=== PATIENT | male | born 1955 | race Caucasian/White ===

== ENCOUNTER → 2017-03-24 | Outpatient (CLI) | payer OTHER ==
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
== END | disposition home or self-care (01) ==
LOC: RADCTMAIN 07:59
PROVIDERS: ATTEND Family Medicine
DX: N20.0 Calculus of kidney (principal); R18.8 Other ascites
CPT/HCPCS: 74160; Q9967

== ENCOUNTER 2018-02-26 09:08 | Emergency (ER) | payer OTHER ==
[2018-02-26 09:18] VITALS: PULSE 100
[2018-02-26] MEDS ORDERED: DIPH,PERTUS(ACELL)TETVAC-LF 0.5 ML VIAL IM ONE (09:26)
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
--- NOTE | 2018-02-26 10:24 | CT ---
EXAMINATION TYPE: CT brain louie raphael DATE OF EXAM: 02/26/2018 COMPARISON: 10/18/2014 HISTORY: Fall today with head injury CT DLP: 2471.[address] of the brain was performed. The ventricles, basal cisterns and sulci overlying the cerebral convexities demonstrate mildly enlarg ement. Right frontal remote insult noted. There is no evidence for intracranial hemorrhage or sulcal effacement. There is decreased attenuatio n about the periventricular white matter and deep white matter of both cerebral hemispheres, compatib le with chronic small vessel ischemia. No mass effects are seen. If symptoms persist consider MRI. Osseous calvarium is intact. IMPRESSION: 1. Age related atrophic and chronic small vessel ischemic change without acute intracranial process seen at this time. CT Cervical Spine: Unenhanced CT of the cervical spine was performed with bone and soft tissue window settings submitted . Coronal and sagittal reconstruction is obtained. There is normal alignment and prevertebral soft tissues. No evidence for acute cervical fracture . Scattered degenerative disc disease and spondylosis. Biapical scarring. IMPRESSION: 1. No evidence for acute fracture or subluxation of the cervical spine.
--- NOTE | 2018-02-26 11:41 | XR ---
EXAMINATION TYPE: XR pelvis complete DATE OF EXAM: 02/26/2018 CLINICAL HISTORY: pain TECHNIQUE: Single view the pelvis is submitted. FINDINGS: No evidence for fracture, dislocation or bony lesion. Joint spaces are well-preserved. S I joints appear symmetric. Degenerative changes lumbar spine. IMPRESSION: 1. No acute fracture or dislocation seen. ICD 10 NO FRACTURE, INITIAL EVALUATION
--- NOTE | 2018-02-26 11:45 | XR ---
EXAMINATION TYPE: XR hand complete LT DATE OF EXAM: 02/26/2018 COMPARISON: NONE HISTORY: Pain TECHNIQUE: Three views are submitted. FINDINGS: The osseous structures are intact. There is narrowing DIP joint joints. No erosive change. There is n o acute fracture or dislocation. IMPRESSION: 1. No definite acute fracture or dislocation if symptoms persist, follow-up study in 7 to 10 days wo uld be suggested. 2. Arthropathy.
[2018-02-26] MEDS ORDERED: TOPICAL SKIN ADHESIVE 1 EACH AMP TOPICAL ONE (11:48)
[2018-02-26 11:49] VITALS: BP 142/80; RESP 20; TEMP 98.3
--- NOTE | 2018-02-26 12:55 | XR ---
EXAMINATION TYPE: XR chest 2V DATE OF EXAM: 02/26/2018 COMPARISON: January 14, 2015 HISTORY: Shortness of breath TECHNIQUE: Frontal and lateral views of the chest are obtained. FINDINGS: Scattered senescent parenchymal changes noted. Hyperinflation compatible with COPD. No evidence for infiltrate. No evidence for atelectasis. Heart size is stable. Mediastinal structures are stable and grossly unremarkable. No evidence for hilar prominence. Degenerative changes dorsal spine. IMPRESSION: 1. No evidence for acute pulmonary disease.
== END 2018-02-26 11:55 | disposition home or self-care (01) ==
LOC: EC 09:08 → SUPCPDRO 09:08 → EC 11:55
DX: S61.213A Laceration without foreign body of left middle finger without damage to nail, initial encounter (principal); S80.212A Abrasion, left knee, initial encounter; S00.212A Abrasion of left eyelid and periocular area, initial encounter; E78.5 Hyperlipidemia, unspecified; I10 Essential (primary) hypertension; K21.9 Gastro-esophageal reflux disease without esophagitis; F32.9 Major depressive disorder, single episode, unspecified; F41.9 Anxiety disorder, unspecified; G47.30 Sleep apnea, unspecified; F17.200 Nicotine dependence, unspecified, uncomplicated; Z88.0 Allergy status to penicillin; Z88.2 Allergy status to sulfonamides; Z79.51 Long term (current) use of inhaled steroids; Z79.899 Other long term (current) drug therapy; Z85.828 Personal history of other malignant neoplasm of skin; Z98.890 Other specified postprocedural states; Z99.89 Dependence on other enabling machines and devices; Z23 Encounter for immunization; V17.4XXA Pedal cycle driver injured in collision with fixed or stationary object in traffic accident, initial encounter; Y93.55 Activity, bike riding; Y92.488 Other paved roadways as the place of occurrence of the external cause
CPT/HCPCS: 12001; 70450; 71046; 72125; 90471; 90715; 99284

== ENCOUNTER 2018-12-21 08:28 | Day surgery (SDC) | payer OTHER ==
[2018-12-19 09:05] VITALS: BMI 31.3
[~2018-12-21 08:28] MED LIST: ALPRAZolam 0.25 MG TAB PO PRN; ALPRAZolam 0.5 MG TAB PO PRN; ASPIRIN 325 MG TAB PO STA; ATORVASTATIN 80 MG TAB PO STA; NITROGLYCERIN SL TABS 0.4 MG TAB SUBLINGUAL PRN; SODIUM CHLORIDE 0.9% 1,000 ML in EMPTY BAG 1 BAG IV ONE
[2018-12-21] MEDS ORDERED: ASPIRIN 81 MG ONE (08:45)
[2018-12-21 09:07] VITALS: RESP 16; TEMP 97.8
[2018-12-21] MEDS ORDERED: SODIUM CHLORIDE 0.9% 1,000 ML IV ONE (09:10)
[2018-12-21 09:38] LABS: INR 0.9 (<1.2); Prothrombin Time 10.1 sec (9.0-12.0)
[2018-12-21] MEDS ORDERED: LIDOCAINE 1% INJ 10MG/ML (20 ML MDV) ONE (10:09)
[2018-12-21] MEDS ORDERED: VERAPAMIL 2.5 MG/ML 2 ML AMP ONE (10:09)
[2018-12-21] MEDS ORDERED: MIDAZOLAM (PF) 2 MG/2 ML VIAL IV ONE (10:25)
[2018-12-21] MEDS ORDERED: LIDOCAINE 1% INJ 10MG/ML (20 ML MDV) SQ ONE (10:25)
[2018-12-21] MEDS: VERAPAMIL SYRINGE (5 MG/10 ML) INTRAARTER ONE ×2 (10:26→10:36)
[2018-12-21] MEDS ORDERED: HEPARIN SODIUM 1,000 UN/ML (10ML VL) ONE (10:27)
[2018-12-21] MEDS ORDERED: HEPARIN SODIUM 1,000 UN/ML (10ML VL) IV ONE (10:28)
[2018-12-21] MEDS ORDERED: IOPAMIDOL-370 125ML BTL INJ ONE (10:35)
[2018-12-21] MEDS ORDERED: SODIUM CHLORIDE 0.9% 1,000 ML IV SCH (10:45)
[2018-12-21] MEDS ORDERED: RX INFO: IV CONTRAST WAS GIVEN 1 EACH MISC MISCELLANE PRN (10:45)
--- NOTE | 2018-12-21 12:41 | CC ---
CARDIAC CATHETERIZATION REPORT DATE OF SERVICE: December 21, 2018 PERFORMING PHYSICIAN: 1. Fidel Fraga MD, product safety coordinator. PROCEDURE PERFORMED: 1. Selective right and left coronary angiogram. 2. Left heart catheterization. INDICATION: This is a 63-year-old gentleman with paroxysmal atrial fibrillation as well as COPD, was experiencing shortness of breath with exertion. He underwent myocardial perfusion imaging stress test and that revealed an anterior ischemia and because of that, heart catheterization was advised. APPROACH: Right radial artery. COMPLICATION: None. LEVEL OF SEDATION: Moderate with sedation length of 16 minutes. PROCEDURE DESCRIPTION: After obtaining an informed consent, the patient was brought to the cardiac director of cath lab. The right radial artery was cannulated using micropuncture technique, and the micropuncture wire passed easily. Then I placed a 5-Setswana sheath in the right radial artery. After that I gave the patient 2 mg of verapamil IA and 10,000 units of heparin IV. Selective right and left coronary angiogram performed using JR4 and JL3.5 catheters. Left heart catheterization was performed using 5-Setswana pigtail catheter. The procedure was completed without any complication. SELECTIVE CORONARY ANGIOGRAM: 1. The right coronary artery is a large caliber vessel. It is a dominant vessel and appeared to be angiographically normal. It distally bifurcates into PDA and PLV branches, both appeared to be angiographically normal. 2. The left main is angiographically normal. Bifurcates into left circumflex and left anterior descending artery. 3. The left circumflex is a nondominant vessel. The proximal circumflex is a large caliber vessel and gives rise into first obtuse marginal branch which appeared to be normal and the circumflex continued after that as a medium caliber vessel in the AV groove. 4. The LAD: The proximal LAD appeared to be normal. The mid LAD gives rise into a large septal statistical assistant branch and also into a large diagonal branch. The LAD at that area has a lesion appeared to be in the range of 20% to 30%. Distally appeared to be angiographically normal. HEMODYNAMICS: The left ventricular end-diastolic pressure was 12 mmHg without significant gradient across the aortic valve. CONCLUSION: 1. Mild nonobstructive coronary artery disease. POSTPROCEDURE MANAGEMENT: 1. Medical treatment. 2. Follow up with the patient. MMODL / IJN: [id number] /
[2018-12-21 18:16] VITALS: BP 131/75; PULSE 60
== END 2018-12-21 15:47 | disposition home or self-care (01) ==
LOC: CATHCVL 08:28
PROVIDERS: ATTEND Internal Medicine Interventional Cardiology
DX: I25.10 Atherosclerotic heart disease of native coronary artery without angina pectoris (principal); I48.0 Paroxysmal atrial fibrillation; I10 Essential (primary) hypertension; E11.51 Type 2 diabetes mellitus with diabetic peripheral angiopathy without gangrene; J44.9 Chronic obstructive pulmonary disease, unspecified; E78.5 Hyperlipidemia, unspecified; E78.00 Pure hypercholesterolemia, unspecified; F17.210 Nicotine dependence, cigarettes, uncomplicated; Z87.01 Personal history of pneumonia (recurrent); Z86.19 Personal history of other infectious and parasitic diseases; Z79.899 Other long term (current) drug therapy; Z79.4 Long term (current) use of insulin; Z79.02 Long term (current) use of antithrombotics/antiplatelets; Z79.51 Long term (current) use of inhaled steroids; Z88.0 Allergy status to penicillin; Z88.2 Allergy status to sulfonamides; Z82.49 Family history of ischemic heart disease and other diseases of the circulatory system
CPT/HCPCS: 93458; 85610; C1769; C1894; J2001; J1644; Q9967; J2250

== ENCOUNTER 2023-11-12 08:05 | Emergency (ER) | payer MEDICARE, OTHER ==
--- NOTE | 2023-11-12 08:10 | ED ---
General Adult HPI - General Stated complaint: hip pain Time Seen by Provider: 11/12/23 08:05 Source: patient, RN notes reviewed, old records reviewed - History of Present Illness Initial comments: This is a 68-year-old male who presents to the emergency department complaining of right hip pain and right coccyx pain. Patient states he fell about a week ago onto some concrete he did not think it was that bad but on top of his a rthritis he states the pain is getting much worse. Patient states he has been able to ambulate but it has been hurting quite a bit. Patient denies hitting his head or neck. Patient denies any chest pain or back pain. Patient states he does have a little pain in the right shoulder but he has full range of motion he does not think he broke anything there. Patient denies any other injury or any other problems at this time - Related Data Home Medications Medication Instructions Recorded Confirmed Citalopram Hydrobromide [CeleXA] 40 mg PO DAILY 10/18/14 12/21/18 Gabapentin 600 mg PO TID 10/18/14 12/21/18 Simvastatin [Zocor] 20 mg PO HS 10/18/14 12/21/18 tiZANidine HCL [Zanaflex] 4 mg PO BID 01/10/15 12/21/18 Albuterol Inhaler [Ventolin Hfa 1 - 2 puff INHALATION TID PRN 12/19/18 12/21/18 Inhaler] Amiodarone HCl [Pacerone] 200 mg PO DAILY 12/19/18 12/21/18 Aspirin [Adult Low Dose Aspirin EC] 81 mg PO DAILY 12/19/18 12/21/18 Ferrous Sulfate [Iron (65 MG 325 mg PO BID 12/19/18 12/21/18 Elemental)] Ibuprofen [Motrin] 800 mg PO QAM 12/19/18 12/21/18 Metoprolol Succinate [Toprol XL] 25 mg PO DAILY 12/19/18 12/21/18 Midodrine [ProAmatine] 5 mg PO DAILY 12/19/18 12/21/18 Mirtazapine [Remeron] 45 mg PO HS 12/19/18 12/21/18 QUEtiapine FUMARATE [SEROquel] 25 mg PO HS 12/19/18 12/21/18 Warfarin [Coumadin] 2 mg PO DAILY 12/19/18 12/21/18 Previous Rx's Medication Instructions Recorded Ketorolac [Toradol] 10 mg PO Q8HR #15 tab 11/12/23 Allergies Allergy/AdvReac Type Severity Reaction Status Date / Time Penicillins Allergy Severe Vomiting Verified 11/12/23 08:14 Sulfa (Sulfonamide Allergy Rash/Hives Verified 11/12/23 08:14 Antibiotics) carnations Allergy eyes and Uncoded 11/12/23 08:14 face swelling Review of Systems ROS Statement: Those systems with pertinent positive or pertinent negative responses have been documented in the HPI. ROS Other: All systems not noted in ROS Statement are negative. Past Medical History Past Medical History: Atrial Fibrillation, Cancer, COPD, CVA/TIA, Deep Vein Thrombosis (DVT), GERD/Reflux, Hyperlipidemia, Hypertension, Osteoarthritis (OA), Prostate Disorder Additional Past Medical History / Comment(s): skin cancer, "massive stroke September 2018"-has left side weakness, "bad heart valve", varicose veins, fina foot swelling, History of Any Multi-Drug Resistant Organisms: None Reported Past Surgical History: Back Surgery, Orthopedic Surgery Additional Past Surgical History / Comment(s): bilateral carpal tunnel release, cancer removed from right side of face, colonoscopy Past Anesthesia/Blood Transfusion Reactions: No Reported Reaction Additional Past Anesthesia/Blood Transfusion Reaction / Comment(s): . Past Psychological History: Depression Past Alcohol Use History: Occasional Additional Past Alcohol Use History / Comment(s): smokes < 1/2 PPD, smoking on and off for 30 yrs, Past Drug Use History: Cocaine, Marijuana, Methamphetamine, Opiates, Prescription Drug Abuse Additional Drug Use History / Comment(s): currently only marijuana for past 5 yrs - Past Family History Mother Family Medical History: Cancer Father Family Medical History: Myocardial Infarction ([place]) Additional Family Medical History / Comment(s): alcoholic General Exam - General Exam Comments Initial Comments: GENERAL: Patient is well-developed and well-nourished. Patient is nontoxic and well- hydrated and is in mild distress. ENT: Neck is soft and supple. No significant lymphadenopathy is noted. Oropharynx is clear. Moist mucous membranes. Neck has full range of motion without eliciting any pain. EYES: The sclera were anicteric and conjunctiva were pink and moist. Extraocular movements were intact and pupils were equal round and reactive to light. Eyelids were unremarkable. PULMONARY: Unlabored respirations. Good breath sounds bilaterally. No audible rales rhonchi or wheezing was noted. CARDIOVASCULAR: There is a regular rate and rhythm without any murmurs gallops or rubs. ABDOMEN: Soft and nontender with normal bowel sounds. SKIN: Skin is clear with no lesions or rashes and otherwise unremarkable. NEUROLOGIC: Patient is alert and oriented x3. Cranial nerves II through XII are grossly intact. Motor and sensory are also intact. Normal speech, volume and content. Symmetrical smile. MUSCULOSKELETAL: Patient has pain in the coccyx region as well as the lateral right hip. Patient has full range of motion of the hip knee and ankle. LYMPHATICS: No significant lymphadenopathy is noted PSYCHIATRIC: Normal psychiatric evaluation. Course Vital Signs 11/12/23 08:08 Temperature 97.5 F L Pulse Rate 74 Respiratory 20 Rate Blood Pressure 135/83 O2 Sat by Pulse 98 Oximetry Medical Decision Making - Medical Decision Making Was pt. sent in by a medical professional or institution (, PA, ASSISTANT PROFESSOR SCULPTURE, urgent care, hospital, or jail...) When possible be specific @ -No Did you speak to anyone other than the patient for history (EMS, parent, family, police, friend...)? What history was obtained from this source @ -No Did you review nursing and triage notes (agree or disagree)? Why? @ -I reviewed and agree with nursing and triage notes Were old charts reviewed (outside hosp., previous admission, EMS record, old EKG, old radiological studies, urgent care reports/EKG's, jail records)? Report findings @ -No old charts were reviewed Differential Diagnosis (chest pain, altered mental status, abdominal pain women, abdominal pain men, vaginal bleeding, weakness, fever, dyspnea, syncope, headache, dizziness, GI bleed, back pain, seizure, CVA, palpatations, mental health, musculoskeletal)? @ -Differential Musculoskeletal Muscular strain, contusion, ligament sprain, fracture, arthritis, septic arthritis, bursitis, cellulitis, muscle spasm, nerve compression, DVT, arterial occlusion, herpes zoster, electrolyte abnormality, tumor.... This is not meant to be in all inclusive list EKG interpreted by me (3pts min.). @ -As above X-rays interpreted by me (1pt min.). @ -X-ray of the hip and sacroiliac showed no acute abnormality CT interpreted by me (1pt min.). @ -None done U/S interpreted by me (1pt. min.). @ -None done What testing was considered but not performed or refused? (CT, X-rays, U/S, labs)? Why? @ -None What meds were considered but not given or refused? Why? @ -None Did you discuss the management of the patient with other professionals (david pritchett i.ibrahima Leija, PA, ASSISTANT PROFESSOR SCULPTURE, lab, RT, psych nurse, social service technician, wares sorter, teacher, military source operations officer, case liner)? Give summary @ -No Was smoking cessation discussed for >3mins.? @ -No Was critical care preformed (if so, how long)? @ -No Were there social determinants of health that impacted care today? How? (Homelessness, low income, unemployed, alcoholism, drug addiction, transportation, low edu. Level, literacy, decrease access to med. care, [facility], rehab)? @ -No Was there de-escalation of care discussed even if they declined (Discuss DNR or withdrawal of care, Hospice)? DNR status @ -No What co-morbidities impacted this encounter? (DM, HTN, Smoking, COPD, CAD, Cancer, CVA, ARF, Chemo, Hep., AIDS, mental health diagnosis, sleep apnea, morbid obesity)? @ -None Was patient admitted / discharged? Hospital course, mention meds given and route, prescriptions, significant lab abnormalities, going to OR and other pertinent info. @ -Patient received Toradol and after the x-rays came back with no acute injury patient was up and ambulatory and felt good enough to go home Undiagnosed new problem with uncertain prognosis? @ -No Drug Therapy requiring intensive monitoring for toxicity (Heparin, Nitro, Insulin, Cardizem)? @ -No Were any procedures done? @ -No Diagnosis/symptom? @ -Hip strain Acute, or Chronic, or Acute on Chronic? @ -Acute Uncomplicated (without systemic symptoms) or Complicated (systemic symptoms)? @ -Uncomplicated Side effects of treatment? @ -No Exacerbation, Progression, or Severe Exacerbation? @ -No Poses a threat to life or bodily function? How? (Chest pain, [place], [place], pneumonia, PE, COPD, DKA, ARF, appy, cholecystitis, CVA, Diverticulitis, Homicidal, Suicidal, threat to staff... and all critical care pts) @ -No Disposition Clinical Impression: Fall, Hip strain Disposition: HOME SELF-CARE Condition: Good Instructions (If sedation given, give patient instructions): Osteoarthritis (ED), Hip Pain (ED) Prescriptions: Ketorolac [Toradol] 10 mg PO Q8HR #15 tab Is patient prescribed a controlled substance at d/c from ED?: No Referrals: Pamela Powers DO [Primary Care Provider] - 1-2 days Time of Disposition: 09:38
[2023-11-12 08:34] VITALS: TEMP 97.5
--- NOTE | 2023-11-12 08:42 | XR ---
EXAMINATION TYPE: XR Hip RT and AP Pelvis DATE OF EXAM: 11/12/2023 COMPARISON: Pelvis dated 02/26/2018 HISTORY: Fall TECHNIQUE: A single AP view of the pelvis is obtained. Two views of the right hip are obtained. FINDINGS: There is no acute fracture/dislocation evident in the pelvis. The hip and sacroiliac join ts appear symmetric and unremarkable. The overlying soft tissue appears unremarkable. Two views of right hip show no acute fracture or dislocation. There is marked joint space narrowing w ith subchondral sclerosis and mild subchondral cyst formation in the right hip joint. IMPRESSION: 1. No pelvic trauma. 2. Marked degenerative change in the lower lumbar spine. 3. No acute fracture dislocation right hip. 4. Marked osteoarthritis of the right hip.
--- NOTE | 2023-11-12 08:44 | XR ---
Sacrum and coccyx HISTORY: Pain following fall. COMPARISON: None. TECHNIQUE: 3 views of the sacrum and coccyx were obtained. FINDINGS: There is no fracture or focal intraosseous abnormality of the sacrum. There is marked osteoarthritis of the right hip and marked degenerative disc disease at the L4-5 leve l and moderate degenerative disease at the L5-S1 level. IMPRESSION: 1. No trauma to the sacrum. 2. Advanced degenerative changes of the right hip and lower lumbar spine.
[2023-11-12] MEDS: KETOROLAC 15 MG/ML 1 ML VIAL IVP STA (08:57)
[2023-11-12 10:08] VITALS: BP 125/85; PULSE 70; RESP 18
== END 2023-11-12 09:48 | disposition home or self-care (01) ==
LOC: SUPCPDRO 08:05 → EC 08:05
DX: S76.011A Strain of muscle, fascia and tendon of right hip, initial encounter (principal); F17.210 Nicotine dependence, cigarettes, uncomplicated; Z88.0 Allergy status to penicillin; Z88.2 Allergy status to sulfonamides; Z91.011 Allergy to milk products; Z86.73 Personal history of transient ischemic attack (TIA), and cerebral infarction without residual deficits; W19.XXXA Unspecified fall, initial encounter
CPT/HCPCS: 72220; 73502; 99284; 96374; J1885

== ENCOUNTER → 2023-12-06 | Outpatient (CLI) | payer MEDICARE, OTHER ==
--- NOTE | 2023-12-06 14:25 | CTL ---
EXAMINATION TYPE: CT Low Dose Lung DATE OF EXAM ORDERED: 12/06/2023 HISTORY: 60-year-old male Z12.2. Lung cancer screening. Personal history of tobacco use, current smok er with 30 pack-year history CT DLP: 93.[address] CTDI: 2.4 mGy Automated exposure control for dose reduction was used. SCREENING VISIT: Baseline COMPARISON: Radiograph 02/26/2018 TECHNIQUE: Low dose computed tomography scan was performed through the chest at 1 mm thick sections a nd reconstructed images in multiple planes at 1 mm and [address] DIAGNOSTIC QUALITY: Satisfactory FINDINGS: Heart normal size without pericardial effusion. LAD and RCA coronary artery calcifications are presen t. Borderline ectasia ascending aorta 3.5 cm with minimal atherosclerotic arch calcifications and conven tional vessel branching anatomy. No thoracic lymphadenopathy by CT size criteria. Moderate emphysematous changes with bilateral scattered pleural-parenchymal stranding scarring. Mild groundglass change in the bilateral lower lungs. 5 mm nodule anterior right upper lobe, axial image 66. Two additional 5 mm fissural pulmonary nodules along the right midlung, axial image 134 and 145. 3 mm fissural pulmonary nodule right upper lung, axial image 115. Calcified granuloma left apex on axial. Visualized upper abdomen shows a 9 mm nonobstructive right renal stone. Bones: DISH throughout the lower thoracic spine. IMPRESSION: 1. LungRADS 2, benign; a few scattered 5 mm and smaller pulmonary nodules on baseline screening. 2. COPD with moderate emphysema. Some groundglass in the lower lung could represent fine interstitial scarring or an interstitial pneumonitis such as DIP. 3. Incidental 9 mm nonobstructive right renal calculus. CT LUNG RAD AND CT CHEST RECOMMENDATION: Lung-Rad 2 Benign Appearance or Behavior: Continue annual sc reening with LDCT in 12 months. S Modifier (other clinically significant findings): None
== END | disposition home or self-care (01) ==
LOC: RADCTMAIN 13:01
PROVIDERS: ATTEND Family Medicine
DX: Z12.2 Encounter for screening for malignant neoplasm of respiratory organs (principal); J43.9 Emphysema, unspecified; N20.0 Calculus of kidney; F17.210 Nicotine dependence, cigarettes, uncomplicated
CPT/HCPCS: 71271

== ENCOUNTER 2024-04-01 12:25 | Emergency (ER) | payer MEDICARE, OTHER ==
--- NOTE | 2024-04-01 13:01 | ED ---
Wound/Laceration HPI - General Chief Complaint: Wound/Laceration Stated Complaint: L hand lac Time Seen by Provider: 04/01/24 12:40 Source: patient, EMS, RN notes reviewed Mode of arrival: EMS Limitations: no limitations - History of Present Illness Initial Comments: 68-year-old male presents emergency department via EMS for chief complaint of a laceration to his left finger. States that he was using a pocket knife to cut a hole into his belt when actually cut his finger. He is concerned that he may need stitches. Denies paresthesias or loss of range of motion. Last tetanus vaccination was approximately 1 year ago - Related Data Home Medications Medication Instructions Recorded Confirmed Citalopram Hydrobromide [CeleXA] 40 mg PO DAILY 10/18/14 12/21/18 Gabapentin 600 mg PO TID 10/18/14 12/21/18 Simvastatin [Zocor] 20 mg PO HS 10/18/14 12/21/18 tiZANidine HCL [Zanaflex] 4 mg PO BID 01/10/15 12/21/18 Albuterol Inhaler [Ventolin Hfa 1 - 2 puff INHALATION TID PRN 12/19/18 12/21/18 Inhaler] Amiodarone HCl [Pacerone] 200 mg PO DAILY 12/19/18 12/21/18 Aspirin [Adult Low Dose Aspirin EC] 81 mg PO DAILY 12/19/18 12/21/18 Ferrous Sulfate [Iron (65 MG 325 mg PO BID 12/19/18 12/21/18 Elemental)] Ibuprofen [Motrin] 800 mg PO QAM 12/19/18 12/21/18 Metoprolol Succinate [Toprol XL] 25 mg PO DAILY 12/19/18 12/21/18 Midodrine [ProAmatine] 5 mg PO DAILY 12/19/18 12/21/18 Mirtazapine [Remeron] 45 mg PO HS 12/19/18 12/21/18 QUEtiapine FUMARATE [SEROquel] 25 mg PO HS 12/19/18 12/21/18 Warfarin [Coumadin] 2 mg PO DAILY 12/19/18 12/21/18 Previous Rx's Medication Instructions Recorded Ketorolac [Toradol] 10 mg PO Q8HR #15 tab 11/12/23 Allergies Allergy/AdvReac Type Severity Reaction Status Date / Time Penicillins Allergy Severe Vomiting Verified 04/01/24 12:34 Sulfa (Sulfonamide Allergy Rash/Hives Verified 04/01/24 12:34 Antibiotics) carnations Allergy eyes and Uncoded 04/01/24 12:34 face swelling Review of Systems ROS Statement: Those systems with pertinent positive or pertinent negative responses have been documented in the HPI. ROS Other: All systems not noted in ROS Statement are negative. Past Medical History Past Medical History: Atrial Fibrillation, Cancer, COPD, CVA/TIA, Deep Vein Thrombosis (DVT), GERD/Reflux, Hyperlipidemia, Hypertension, Osteoarthritis (OA), Prostate Disorder Additional Past Medical History / Comment(s): skin cancer, "massive stroke September 2018"-has left side weakness, "bad heart valve", varicose veins, fina foot swelling, History of Any Multi-Drug Resistant Organisms: None Reported Past Surgical History: Back Surgery, Orthopedic Surgery Additional Past Surgical History / Comment(s): bilateral carpal tunnel release, cancer removed from right side of face, colonoscopy Past Anesthesia/Blood Transfusion Reactions: No Reported Reaction Additional Past Anesthesia/Blood Transfusion Reaction / Comment(s): . Past Psychological History: Depression Past Alcohol Use History: Occasional Past Drug Use History: Cocaine, Marijuana, Methamphetamine, Opiates, Prescription Drug Abuse - Past Family History Mother Family Medical History: Cancer Father Family Medical History: Myocardial Infarction ([place]) Additional Family Medical History / Comment(s): alcoholic General Exam - General Exam Comments Initial Comments: Visual Physical Exam Vital signs reviewed General: Well-appearing, nontoxic, no acute distress. Head: Normocephalic, atraumatic Eyes: PERRLA, EOMI ENT: Airway patent Chest: Nonlabored breathing Skin: No visual rash, normal skin tone Neuro: Alert and oriented 3 Musculoskeletal: No gross abnormalities Limitations: no limitations General appearance: alert, in no apparent distress Eye exam: Present: normal appearance, PERRL, EOMI. Absent: scleral icterus, conjunctival injection, periorbital swelling ENT exam: Present: normal exam, mucous membranes moist Neck exam: Present: normal inspection. Absent: tenderness, meningismus, lymphadenopathy Respiratory exam: Present: normal lung sounds bilaterally. Absent: respiratory distress, wheezes, rales, rhonchi, stridor Cardiovascular Exam: Present: regular rate, normal rhythm, normal heart sounds. Absent: systolic murmur, diastolic murmur, rubs, gallop, clicks GI/Abdominal exam: Present: soft, normal bowel sounds. Absent: distended, tenderness, guarding, rebound, rigid Left Hand Wrist exam: Present: laceration (index finger 3 cm) Neuro motor exam: Present: wrist extension intact, thumb opposition intact Vascular: Present: normal capillary refill, radial pulse (2+). Absent: vascular compromise Back exam: Present: normal inspection Neurological exam: Present: alert, oriented X3, CN II-XII intact Skin exam: Present: warm, dry, intact, normal color. Absent: rash Course Vital Signs 04/01/24 04/01/24 12:31 14:44 Temperature 98.2 F 97.6 F Pulse Rate 83 68 Respiratory 16 15 Rate Blood Pressure 106/72 151/91 O2 Sat by Pulse 97 98 Oximetry Procedures - Laceration Laceration #1 Consent Obtained: verbal consent Indication: laceration Site: hand Size (cm): 3 Description: linear Depth: simple, single layer Anesthetic Used: lidocaine 1% Anesthesia Technique: nerve block Amount (mls): 3 Pre-repair: wound explored Type of Sutures: nylon Size of Sutures: 4-0 Number of Sutures: 3 Technique: simple, interrupted Patient Tolerated Procedure: well, no complications Medical Decision Making - Medical Decision Making Was pt. sent in by a medical professional or institution (LESLIE Leija, SOUND EQUIPMENT MECHANIC, urgent care, hospital, or detention...) When possible be specific @ -No Did you speak to anyone other than the patient for history (EMS, parent, family, police, friend...)? What history was obtained from this source @ -No Did you review nursing and triage notes (agree or disagree)? Why? @ -I reviewed and agree with nursing and triage notes Were old charts reviewed (outside hosp., previous admission, EMS record, old EKG, old radiological studies, urgent care reports/EKG's, detention records)? Report findings @ -No old charts were reviewed Differential Diagnosis (chest pain, altered mental status, abdominal pain women, abdominal pain men, vaginal bleeding, weakness, fever, dyspnea, syncope, headache, dizziness, GI bleed, back pain, seizure, CVA, palpatations, mental health, musculoskeletal)? @ -laceration, skin avulsion EKG interpreted by me (3pts min.). @ -none X-rays interpreted by me (1pt min.). @ -None done CT interpreted by me (1pt min.). @ -None done U/S interpreted by me (1pt. min.). @ -None done What testing was considered but not performed or refused? (CT, X-rays, U/S, labs)? Why? @ -None What meds were considered but not given or refused? Why? @ -None Did you discuss the management of the patient with other professionals (professionals i.e. , PA, SOUND EQUIPMENT MECHANIC, lab, RT, psych nurse, health and social care teacher, theatrical agent, teacher, hospital chief executive officer, gearcase assembler)? Give summary @ -No Was smoking cessation discussed for >3mins.? @ -No Was critical care preformed (if so, how long)? @ -No Were there social determinants of health that impacted care today? How? (Homelessness, low income, unemployed, alcoholism, drug addiction, transportation, low edu. Level, literacy, decrease access to med. care, long-term, rehab)? @ -No Was there de-escalation of care discussed even if they declined (Discuss DNR or withdrawal of care, Hospice)? DNR status @ -No What co-morbidities impacted this encounter? (DM, HTN, Smoking, COPD, CAD, Cancer, CVA, ARF, Chemo, Hep., AIDS, mental health diagnosis, sleep apnea, morbid obesity)? @ -None Was patient admitted / discharged? Hospital course, mention meds given and route, prescriptions, significant lab abnormalities, going to OR and other pertinent info. @ -Discharge. 68-year-old male with laceration to the left index finger. Laceration is approximately 3 cm. Patient is neurovascular intact. Area was thoroughly cleansed with sterile water and Betadine solution. Digital block was performed with lidocaine and 3 simple interrupted sutures were placed with 4-0 nylon. Have patient return the emergency department or transfer my care provider in 7 to 10 days for suture removal. Continue to keep area clean and dry. Discussed with Dr. Mendoza Undiagnosed new problem with uncertain prognosis? @ -No Drug Therapy requiring intensive monitoring for toxicity (Heparin, Nitro, Insulin, Cardizem)? @ -No Were any procedures done? @ -Wound irrigation, laceration repair via sutures Diagnosis/symptom? @ -Laceration Acute, or Chronic, or Acute on Chronic? @ -Acute Uncomplicated (without systemic symptoms) or Complicated (systemic symptoms)? @ -uncomplicated Side effects of treatment? @ -No Exacerbation, Progression, or Severe Exacerbation? @ -No Poses a threat to life or bodily function? How? (Chest pain, [place], PA, pneumonia, PE, COPD, DKA, ARF, appy, cholecystitis, CVA, Diverticulitis, Homicidal, Suicidal, threat to staff... and all critical care pts) @ -No Disposition Clinical Impression: Laceration Disposition: HOME SELF-CARE Condition: Good Instructions (If sedation given, give patient instructions): Care For Your Stitches (ED) Additional Instructions: Please return to the Emergency Department if symptoms worsen or any other concerns. Continue to keep area clean and dry and return the emergency department at your primary care provider in 7 to 10 days for suture removal. Is patient prescribed a controlled substance at d/c from ED?: No Referrals: Manish Montesinos MD [Primary Care Provider] - 1-2 days Time of Disposition: 14:32
[2024-04-01] MEDS: LIDOCAINE 1% INJ 10MG/ML (20 ML MDV) SQ ONE (14:18)
[2024-04-01 14:46] VITALS: BP 151/91; PULSE 68; RESP 15; TEMP 97.6
== END 2024-04-01 14:46 | disposition home or self-care (01) ==
LOC: EC 12:25
CPT/HCPCS: 12002; 99283

== ENCOUNTER 2024-04-09 09:23 | Day surgery (SDC) | payer MEDICARE, OTHER ==
[2024-04-08 12:21] VITALS: BMI 31.8
[~2024-04-09 09:23] MED LIST changes: -ALPRAZolam 0.25 MG TAB PO PRN; -ALPRAZolam 0.5 MG TAB PO PRN; -ASPIRIN 325 MG TAB PO STA; -ATORVASTATIN 80 MG TAB PO STA; +LIDOCAINE 1% (10MG/ML) FOR IV START INTRADERMA PRN; -NITROGLYCERIN SL TABS 0.4 MG TAB SUBLINGUAL PRN; -SODIUM CHLORIDE 0.9% 1,000 ML in EMPTY BAG 1 BAG IV ONE
[2024-04-09] MEDS: LACTATED RINGERS 1,000 ML IV SCH (10:03)
[2024-04-09] MEDS: IV FLUID CONTINUATION 1,000 ML IV ONE (10:03)
[2024-04-09] MEDS ORDERED: PROPOFOL 10 MG/ML 20 ML VIAL IV ONE (10:04)
[2024-04-09] MEDS ORDERED: LIDOCAINE 2% (PF) 20 MG/ML 5 ML VIAL ONE (10:04)
[2024-04-09 10:05] VITALS: TEMP 97.3
--- NOTE | 2024-04-09 10:08 | P.GSHP ---
History of Present Illness H&P Date: 04/09/24 Chief Complaint: Colon cancer screening 68-year-old male here for colonoscopy. Last colonoscopy 10 years ago. Family history of colon cancer in his mother. No bowel complaints. Past Medical History Past Medical History: Atrial Fibrillation, Cancer, COPD, CVA/TIA, Deep Vein Thrombosis (DVT), GERD/Reflux, Hearing Disorder / Deafness, Hyperlipidemia, Hypertension, Osteoarthritis (OA), Prostate Disorder Additional Past Medical History / Comment(s): Hx skin cancer X5, "massive stroke September 2018"-has left side weakness, "bad heart valve", bilateral hearing aid use, varicose veins, minimal bilateral foot swelling, left foot discoloration. History of Any Multi-Drug Resistant Organisms: None Reported Past Surgical History: Back Surgery, Orthopedic Surgery Additional Past Surgical History / Comment(s): Bilateral carpal tunnel release, skin cancer removed X5, colonoscopy X6. Past Anesthesia/Blood Transfusion Reactions: No Reported Reaction Additional Past Anesthesia/Blood Transfusion Reaction / Comment(s): . Smoking Status: Current every day smoker - Past Family History Mother Family Medical History: Cancer Father Family Medical History: Myocardial Infarction ([place]) Additional Family Medical History / Comment(s): Alcoholic. Sister(s) Family Medical History: Cancer Additional Family Medical History / Comment(s): Breast cancer. Medications and Allergies Home Medications Medication Instructions Recorded Confirmed Type Gabapentin 600 mg PO TID 10/18/14 04/09/24 History Simvastatin [Zocor] 20 mg PO QAM 10/18/14 04/09/24 History Albuterol Inhaler [Ventolin Hfa 1 - 2 puff INHALATION TID PRN 12/19/18 04/09/24 History Inhaler] Amiodarone HCl [Pacerone] 200 mg PO QAM 12/19/18 04/09/24 History Aspirin [Adult Low Dose Aspirin EC] 81 mg PO DAILY 12/19/18 04/09/24 History Metoprolol Succinate [Toprol XL] 25 mg PO QAM 12/19/18 04/09/24 History Midodrine [ProAmatine] 5 mg PO QAM 12/19/18 04/09/24 History Warfarin [Coumadin] 2 mg PO DAILY 12/19/18 04/09/24 History Citalopram Hydrobromide [CeleXA] 30 mg PO QAM 04/08/24 04/09/24 History Citalopram Hydrobromide [CeleXA] 60 mg PO HS 04/08/24 04/09/24 History Allergies Allergy/AdvReac Type Severity Reaction Status Date / Time Penicillins Allergy Severe Vomiting Verified 04/09/24 09:51 Sulfa (Sulfonamide Allergy Rash/Hives Verified 04/09/24 09:51 Antibiotics) carnations Allergy eyes and Uncoded 04/09/24 09:51 face swelling Surgical - Exam Vital Signs Temp Pulse Resp BP Pulse Ox 97.3 F L 93 16 120/78 95 04/09/24 10:01 04/09/24 10:01 04/09/24 10:01 04/09/24 10:01 04/09/24 10:01 Physical exam: General: Well-developed, well-nourished HEENT: Normocephalic, sclerae nonicteric Abdomen: Nontender, nondistended Extremities: No edema Neuro: Alert and oriented Assessment and Plan (1) Colon cancer screening Narrative/Plan: Will proceed with colonoscopy at this time. Current Visit: Yes Status: Acute Code(s): Z12.11 - ENCOUNTER FOR SCREENING FOR MALIGNANT NEOPLASM OF COLON SNOMED Code(s): 381138148
--- NOTE | 2024-04-09 10:20 | P.PCN ---
Date of Procedure: 04/09/24 Procedure(s) Performed: PREOPERATIVE DIAGNOSIS: History of polyps, family history of colon cancer POSTOPERATIVE DIAGNOSIS: Diverticulosis PROCEDURE: Colonoscopy ANESTHESIA: MAC SURGEON: Srinivas Juárez M.D. SPECIMENS: None ENDOSCOPIC PROCEDURE: The patient was placed on the endoscopy table in the left decubitus position. The Olympus colonoscope was inserted into the anus and passed under direct visualization to the base of the cecum. The appendiceal orifice was visualized. From that point the scope was slowly withdrawn inspecting all surfaces carefully. There were no neoplastic inflammatory or polypoid lesions throughout the cecum, ascending, transverse, descending, sigmoid and rectum. There was moderate left-sided diverticulosis noted. The patient's prep was slightly suboptimal with some retained liquid and solid stool scattered throughout the colon. Digital rectal examination was normal. The patient was taken to the recovery room in stable condition per anesthesia guidelines. RECOMMENDATIONS: Resume diet. Repeat colonoscopy 3 to 5 years
[2024-04-09 11:00] VITALS: BP 110/68; PULSE 75; RESP 16
== END 2024-04-09 11:52 | disposition home or self-care (01) ==
LOC: ORWHC2ENDO 09:23
PROVIDERS: ATTEND Surgery
DX: Z12.11 Encounter for screening for malignant neoplasm of colon (principal); K57.30 Diverticulosis of large intestine without perforation or abscess without bleeding; I48.91 Unspecified atrial fibrillation; I10 Essential (primary) hypertension; E78.5 Hyperlipidemia, unspecified; J44.9 Chronic obstructive pulmonary disease, unspecified; K21.9 Gastro-esophageal reflux disease without esophagitis; H91.90 Unspecified hearing loss, unspecified ear; F17.200 Nicotine dependence, unspecified, uncomplicated; Z79.82 Long term (current) use of aspirin; Z79.01 Long term (current) use of anticoagulants; Z79.899 Other long term (current) drug therapy; Z86.0100 Personal history of colon polyps, unspecified; Z86.73 Personal history of transient ischemic attack (TIA), and cerebral infarction without residual deficits; Z86.718 Personal history of other venous thrombosis and embolism; Z88.0 Allergy status to penicillin; Z88.2 Allergy status to sulfonamides; Z80.0 Family history of malignant neoplasm of digestive organs
CPT/HCPCS: J2704; J2003; G0105